=== PATIENT | female | born 1935 | race Caucasian/White ===

== ENCOUNTER 2023-06-22 17:03 | Emergency (ER) | payer OTHER, BC ==
[2023-06-22 17:29] VITALS: BP 167/74; PULSE 84; RESP 16; TEMP 98.7; BMI 21.2
[2023-06-22 17:58] LABS: HEMATOCRIT 41.3 % (32.4-45.2); HEMOGLOBIN 13.9 G/dL (10.7-15.3); MCH 30.2 pg (25.7-33.7); MCHC 33.7 g/dl (32.0-36.0); MEAN CELL VOLUME 89.8 fl (80-96); MEAN PLT VOLUME 10.8 fl (7.5-11.1); PLATELET COUNT 242.7 10^3/uL (134-434); RDW 15.5 % (11.6-15.6)
[2023-06-22 18:06] LABS: INR 1.03 (0.83-1.09); PROTHROMBIN TIME (PATIENT) 11.9 SEC (9.7-13.0)
[2023-06-22 18:08] LABS: ACTIVATED PTT 32.2 SECONDS (25.2-36.5)
[2023-06-22 18:14] LABS: ALBUMIN 4.6 g/dl (3.4-5.0); BILIRUBIN,TOTAL 0.4 mg/dl (0.2-1); BLOOD UREA NITROGEN 20.4 mg/dl (7-18); CALCIUM 9.6 mg/dl (8.5-10.1); CREATININE 0.9 mg/dl (0.6-1.3); POTASSIUM 4.4 mmol/L (3.5-5.1); SGOT/AST 17.8 U/L (15-37); SGPT/ALT 14.3 U/L (7-52); TOT PROT 7.6 g/dl (6.4-8.2)
[2023-06-22 18:18] LABS: PLATELET ESTIMATE ADEQUATE
[2023-06-22 19:50] LABS: EPITHELIAL CELLS FEW /hpf
== END 2023-06-22 19:03 | disposition home or self-care (01) ==
LOC: FER 17:03
DX: R53.83 Other fatigue (principal); R06.02 Shortness of breath; R53.1 Weakness; R55 Syncope and collapse
CPT/HCPCS: 0241U-QW; 36415; 71046-TC-FY; 80053; 81003; 81015; 84484; 85025; 85610; 85730; 87086; 93005; 93010